=== PATIENT | male | born 1950 | race Caucasian/White ===

== ENCOUNTER 2018-12-17 16:15 | Emergency (ER) | payer BC, OTHER ==
--- NOTE | 2018-12-17 16:31 | EDPHY ---
H & P Stated Complaint: slammed r 3rd digit in truck door/lost balance fell hitting head denies loc Time Seen by Provider: 12/17/18 16:25 HPI/ROS: HPI: This is a 68-year-old male who presents with Chief Complaint: Right middle finger injury, head injury Location: Right middle finger, right forehead Quality: Injury Duration: 2 hr prior to arrival Signs and Symptoms: + bleeding, + radiation, no numbness, no weakness, no tingling, no incontinence, no decreased range of motion, no swelling, no pain, no fever Timing: Acute Severity: Moderate Context: Patient reports that he was closing his truck door when he accidentally slammed his right middle finger into the car door. He is right- hand dominant. He felt immediate, constant, moderate pain that was radiating up into his right hand. He quickly opened the door and removed his finger. He felt a throbbing sensation and started to feel lightheaded. He then walked to the back of his truck and lost his balance hitting the right side of his forehead on the truck bed. Denies LOC/neck pain/dizziness/nausea/vomiting/ amnesia. He was ambulatory at the scene. Not on any blood thinners. Patient reports that after several seconds, the lightheadedness and pain resolved. He walked into work and they directed him to the urgent care for further evaluation. He drove himself to urgent care. Urgent care directed him to the emergency room for head CT imaging. He then drove himself to the emergency room. He currently has no complaints. Reports tetanus is up-to-date. Denies decreased range of motion, radiation, weakness. Patient reports that he has a history of vertigo but feels that he became dizziness secondary to the pain of closing his finger into the car door. Patient reports the dizziness only lasted approximately "a few seconds." Patient reports that he was in the artillery in the [employer] and has 80% hearing loss in his right ear and 20% hearing loss in his left ear. Modifying Factors: None Comment: ROS: A comprehensive 10 system review of systems is otherwise negative aside from elements mentioned in the history of present illness. MEDICAL/SURGICAL/SOCIAL HISTORY: Medical history: History of vertigo, chronic hearing loss Surgical history: Appendectomy Social history: Employed as a team truck driver. Nonsmoker. . CONSTITUTIONAL: Well-developed, well-nourished, elderly white male, talkative and appropriate, awake and alert, no obvious distress HEENT: Mild 1 in annular contusion noted to the right side of the forehead-no break in skin appreciated; normocephalic. NECK: supple, no midline tenderness, flexion 45 degrees, extension 45 degrees, right and left lateral flexion 45 degrees. No meningismus. Cardiovascular: Normal S1/S2, regular rate, regular rhythm, without murmur rub or gallop. PULMONARY/CHEST: Symmetrical and nontender. no crepitus. Clear to auscultation bilaterally. Good air movement. No accessory muscle usage. ABDOMEN: Soft, nondistended, nontender, no ecchymosis. PELVIC: no pain with rocking; bilateral hips flexion 125 degrees, extension 30 degrees, with no pain internal rotation and no pain external rotation. BACK: No midline tenderness, no paraspinous spasm, deep tendon reflexes 2/2, no pain with straight leg raise, No foot drop. Achilles reflexes are equal bilaterally. Able to walk on heels and toes without difficulty. EXTREMITIES: 2/2 pulses, strength 5/5, right middle finger shows mild contusion from the DI P to the distal tip; no nail injury; + superficial skin avulsion v-shaped left distal measuring 1/8 cm-no active bleeding. DIP/PIP/MCP flexion/extension intact with good light touch sensation. no deformities, no clubbing, no cyanosis or edema. NEUROLOGICAL: no focal neuro deficits. GCS 15. Light touch sensation intact. SKIN: Warm and dry, no erythema. no rash. Good capillary refill. Source: Patient Exam Limitations: No limitations - Personal History Current Tetanus Diphtheria and Acellular Pertussis (TDAP): No - Medical/Surgical History Hx Asthma: No Hx Chronic Respiratory Disease: No Hx Diabetes: No Hx Cardiac Disease: No Hx Renal Disease: No Hx Cirrhosis: No Hx Alcoholism: No Hx HIV/AIDS: No Hx Splenectomy or Spleen Trauma: No Other PMH: vertigo appy - Social History Smoking Status: Never smoked Constitutional: Initial Vital Signs Temperature (C) 37 C 12/17/18 16:19 Heart Rate 88 12/17/18 16:19 Respiratory Rate 18 12/17/18 16:19 Blood Pressure 140/92 H 12/17/18 16:19 O2 Sat (%) 94 12/17/18 16:19 O2 Delivery Mode Room Air Allergies/Adverse Reactions: No Known Allergies Allergy (Verified 12/17/18 16:19) Home Medications: Medication Instructions Recorded NK [No Known Home Meds] 12/17/18 Medical Decision Making - Diagnostics Imaging Results: Imaging Impressions Finger X-Ray 12/17/18 16:31 Impression: No fracture. Head CT 12/17/18 16:31 Impression: 1. No acute intracranial hemorrhage or calvarial fracture. Laurence Frances was notified of these findings by telephone at 5:16 PM on 12/17/2018. ED Course/Re-evaluation: Vital signs reviewed and stable upon arrival. Lightheadedness described as dizziness was most likely a vasovagal reaction secondary to pain. Tetanus is up-to-date. Washed with soap water, irrigated copiously, Xeroform and clean sterile dressing applied Sutures not indicated for superficial skin avulsion. Right middle finger x-ray ordered and my read via bedside imaging shows possibly a minimally displaced tuft fracture 1657: X-ray My read via PACs shows no tuft fracture Based on advanced age greater than 65 years old, head CT imaging ordered No midline tenderness or neurological deficits to warrant cervical CT imaging 1717: Called by radiologist, Dr. Yap, reports head CT shows no acute intracranial process. Verbal and written wound care instructions provided. No signs of neurovascular compromise/tenting of skin/compartment syndrome/ extremities and joints examined above and below area of concern and are neurovascularly intact/concussion. This patient was seen under the supervision of my secondary supervising physician. I evaluated and cared for this patient with attending. Differential Diagnosis: Differential diagnosis includes but is not limited to finger fracture, contusion , abrasion, nail injury, nerve injury, tendon injury Head injury including but not limited to concussion, skull fracture, intraparenchymal contusion, subarachnoid, subdural and epidural hematoma. Departure - Departure Disposition: Home, Routine, Self-Care Clinical Impression: Contusion of forehead Qualifiers: Encounter type: initial encounter Qualified Code(s): S00.83XA - Contusion of other part of head, initial encounter Avulsion of skin of finger without complication Qualifiers: Encounter type: initial encounter Qualified Code(s): S61.209A - Unspecified open wound of unspecified finger without damage to nail, initial encounter Condition: Good Instructions: Skin Avulsion (ED), Scalp Contusion in Adults (ED) Additional Instructions: Keep the dressing dry and in place for 48 hours. After 48 hours, you may remove the dressing; wash the site daily with mild soap and water; then pat dry. Apply topical antibiotic ointment and keep covered with sterile dressing until fully healed. Do not soak in a bathtub or go swimming until sutures are removed. Take Tylenol 650 mg every 4 hours and/or Ibuprofen 600 mg every 8 hours with food as needed for pain. Return to the ER immediately if you have progressive headaches, neurologic deficits, gait abnormality, visual disturbance, slurred speech, or any other symptom that concerns you. Referrals: Rohit Orozco MD [Primary Care Provider] - Follow Up Only If Needed
[2018-12-17 17:32] VITALS: BP 165/86
== END 2018-12-17 17:32 | disposition home or self-care (01) ==
DX: S61.202A Unspecified open wound of right middle finger without damage to nail, initial encounter (principal); S00.83XA Contusion of other part of head, initial encounter; W23.1XXA Caught, crushed, jammed, or pinched between stationary objects, initial encounter; Y92.812 Truck as the place of occurrence of the external cause